=== PATIENT | female | born 1955 | race Caucasian/White ===

== ENCOUNTER → 2017-01-18 | Outpatient (CLI) | payer OTHER ==
[~2017-01-18] MED LIST: SYNTHROID 0.0.025 MG PO; ZOCOR5 MG PO
== END ==
LOC: MC.RAD 12:14
DX: Z12.31 Encounter for screening mammogram for malignant neoplasm of breast (principal)

== ENCOUNTER → 2018-01-31 | Outpatient (CLI) | payer OTHER | LOC: MC.RAD 12:47 | DX: Z12.31 Encounter for screening mammogram for malignant neoplasm of breast (principal) ==

== ENCOUNTER → 2019-02-14 | Outpatient (CLI) | payer OTHER | LOC: MC.RAD 08:50 | DX: Z12.31 Encounter for screening mammogram for malignant neoplasm of breast (principal); N63.21 Unspecified lump in the left breast, upper outer quadrant ==

== ENCOUNTER → 2019-02-20 | Outpatient (CLI) | payer OTHER | LOC: MC.RAD 13:13 | DX: N63.20 Unspecified lump in the left breast, unspecified quadrant (principal) | CPT/HCPCS: G0279 ==

== ENCOUNTER 2019-10-07 11:26 | Emergency (ER) | payer OTHER ==
[~2019-10-07] VITALS: Ht 180.3 cm; Wt 100.9 kg
[2019-10-07 11:37] VITALS: BP 134/81; TEMP 98.7
[2019-10-07] MEDS ORDERED: NAPROSYN500 MG PO (11:57)
[2019-10-07 12:30] VITALS: PULSE 78
== END 2019-10-07 12:30 | disposition home or self-care (01) ==
LOC: COL.ER 11:26
DX: S90.511A Abrasion, right ankle, initial encounter (principal); E03.9 Hypothyroidism, unspecified; E78.5 Hyperlipidemia, unspecified; Z23 Encounter for immunization; W26.8XXA Contact with other sharp object(s), not elsewhere classified, initial encounter; Y92.009 Unspecified place in unspecified non-institutional (private) residence as the place of occurrence of the external cause

== ENCOUNTER → 2020-02-18 | Outpatient (CLI) | payer OTHER ==
[~2020-02-18] MED LIST changes: +NAPROSYN500 MG PO
== END ==
LOC: MC.RAD 09:21
DX: Z12.31 Encounter for screening mammogram for malignant neoplasm of breast (principal)

== ENCOUNTER 2021-02-27 10:31 | Emergency (ER) | payer MEDICARE ==
[~2021-02-27] VITALS: Ht 177.8 cm; Wt 113.6 kg
[2021-02-27 11:12] VITALS: BP 111/73; TEMP 98.5
[2021-02-27 12:15] VITALS: PULSE 62
== END 2021-02-27 12:15 | disposition home or self-care (01) ==
LOC: COL.ER 10:31
DX: H61.22 Impacted cerumen, left ear (principal); Y93.11 Activity, swimming

== ENCOUNTER → 2021-07-14 | Outpatient (CLI) | payer MEDICARE | LOC: MC.RAD 08:17 | DX: Z12.31 Encounter for screening mammogram for malignant neoplasm of breast (principal) ==

== ENCOUNTER → 2022-07-26 | Outpatient (CLI) | payer OTHER | LOC: MC.RAD 11:15 | DX: Z12.31 Encounter for screening mammogram for malignant neoplasm of breast (principal) ==

== ENCOUNTER → 2023-08-22 | Outpatient (CLI) | payer OTHER ==
[~2023-08-22] MED LIST changes: +DECARA PO; +NORCO 325 MG-51 TAB PO; +PROTONIX 40MG T40 MG PO; +SYNTHROID0.112 MG/T PO; +VITAMIN D 50,1.25 MG PO; +ZOCOR 20MG20 MG; +ZOFRAN 4MG T4 MG/TAB PO
== END ==
LOC: MC.RAD 08:50
DX: Z12.31 Encounter for screening mammogram for malignant neoplasm of breast (principal)

== ENCOUNTER 2023-11-14 15:23 | Emergency (ER) | payer MEDICARE, OTHER ==
[~2023-11-14] VITALS: Ht 177.8 cm; Wt 97.7 kg
[2023-11-14 15:32] VITALS: BP 116/66; TEMP 97.8
[2023-11-14] MEDS ORDERED: Amoxicillin/Clavulanate K+ 875/125 MG TAB PO ONE (16:30)
[2023-11-14 17:02] LABS: BASO % 0.5 % (0.0-2.0); EOS # 0.1 K/mm3 (0.0-0.7); EOS % 1.4 % (0.0-4.0); GRAN # 6.3 K/mm3 (1.4-6.5); GRAN % 71.1 % (42.2-75.2); HEMATOCRIT 38.5 % (37.0-47.0); HEMOGLOBIN 13.1 g/dl (12.5-16.0); LYMPH # 1.6 K/mm3 (1.2-3.4); LYMPH % 18.5 % (20.0-51.0); MEAN CELL VOLUME 92 fl (80.0-100.0); MEAN CORPUSCULAR HEMOGLOBIN 31 pg (27-31); MEAN CORPUSCULAR HGB CONC 34 g/dl (33.0-37.0); MEAN PLATELET VOLUME 10.3 fl (7.4-10.4); MONO # 0.7 K/mm3 (0.1-0.6); MONO % 8.3 % (1.7-9.3); PLATELET COUNT 164 K/mm3 (130-400); REDCELL DISTRIBUTION WIDTH-CV 12.4 % (11.5-14.5)
[2023-11-14 17:13] VITALS: PULSE 58
== END 2023-11-14 17:13 | disposition home or self-care (01) ==
LOC: COL.ER 15:23
PROVIDERS: Nurse Practitioner
DX: S61.452A Open bite of left hand, initial encounter (principal); W55.01XA Bitten by cat, initial encounter